=== PATIENT | female | born 1970 | race Caucasian/White ===

== ENCOUNTER 2017-05-14 10:28 | Inpatient (IN) | payer MEDICAID ==
[~2017-05-14] VITALS: Ht 157.5 cm; Wt 70.9 kg
[2017-05-14 10:34] VITALS: Ht 157.5 cm; Wt 70.9 kg
[2017-05-14 12:04] LABS: BASOPHIL % 0.5 % (0-2); PLATELET COUNT 309 x10^3mcL (130-400); RED CELL DISTRIBUTION WIDTH 13.1 % (11.5-14.5)
[2017-05-14 12:31] LABS: CALCIUM 8.8 mg/dL (8.5-10.1); CHLORIDE SERUM 104 mmol/L (98-107); GFR1 > 60 mL/min; GLUCOSE SERUM 88 mg/dL (74-106); POTASSIUM SERUM 3.5 mmol/L (3.5-5.1); SODIUM SERUM 138 mmol/L (136-145)
[2017-05-14 12:36] LABS: ALKALINE PHOSPHATASE 97 U/L (46-116); ALT/SGPT 17 U/L (14-59); AST/SGOT 20 U/L (15-37); BILIRUBIN TOTAL 0.39 mg/dL (0.20-1.00); TOTAL PROTEIN, SERUM 7.7 g/dL (6.4-8.2)
[2017-05-14] MEDS ORDERED: CLINDAMYCIN HC300 MG PO (13:03)
[2017-05-14] MEDS ORDERED: BACTRIM1 TAB PO (13:03)
[2017-05-14] MEDS ORDERED: NORCO1 TA2 PO ×2 (13:04→13:05)
[2017-05-14 13:31] VITALS: BP 99/67
[2017-05-14 14:15] LABS: MAGNESIUM 1.4 mg/dL (1.8-2.4); PHOSPHOROUS 2.1 mg/dL (2.5-4.9)
[2017-05-14 14:17] LABS: CHOLESTEROL/HDL RATIO 2.5; T3 TOTAL 0.83 ng/mL
[2017-05-14 14:23] LABS: FREE T4 1.14 ng/dL (0.76-1.46); FREE THYROXINE INDEX 2.4 ug/dL (1.4-4.5); T4(THYROXINE) 7.5 ug/dL (4.7-13.3)
[2017-05-14 18:11] LABS: UA SPECIFIC GRAVITY 1.025 (1.005-1.035); microscopic required? YES; urine erythrocyte TRACE (NEGATIVE)
[2017-05-14 18:22] LABS: AMPHETAMINE QUAL UR POSITIVE (NEG <=1000)
[2017-05-14 19:27] VITALS: BP 100/51
[2017-05-14 22:56] VITALS: BP 97/51
[2017-05-15 05:37] VITALS: BP 97/48; BP 97/50
[2017-05-15 06:37] LABS: BASOPHIL % 0.4 % (0-2); PLATELET COUNT 266 x10^3mcL (130-400); RED CELL DISTRIBUTION WIDTH 13.2 % (11.5-14.5)
[2017-05-15 07:08] LABS: CALCIUM 8.5 mg/dL (8.5-10.1); CARBON DIOXIDE 24.7 mmol/L (21-32); CHLORIDE SERUM 104 mmol/L (98-107); CREATININE SERUM 0.9 mg/dL (0.6-1.0); GFR1 > 60 mL/min; GLUCOSE SERUM 98 mg/dL (74-106); SODIUM SERUM 138 mmol/L (136-145)
[2017-05-15 09:15] LABS: MAGNESIUM 2.1 mg/dL (1.8-2.4)
[2017-05-15 10:26] VITALS: BP 96/51
[2017-05-15 12:58] VITALS: BP 92/45
[2017-05-15 17:29] VITALS: BP 94/51
[2017-05-15 21:02] VITALS: BP 95/51
[2017-05-16 06:01] VITALS: BP 96/51
[2017-05-16 08:41] VITALS: BP 88/55
[2017-05-16] MEDS ORDERED: CLINDAMYCIN HC300 MG PO (13:34)
[2017-05-16] MEDS ORDERED: NORCO1 TA2 PO (13:36)
[2017-05-16] MEDS ORDERED: BD LACTINEX1.4 MG PO (13:36)
== END 2017-05-16 13:36 | disposition home or self-care (01) | DRG 383 ==
LOC: ED 10:28 → DU 12:08
PROVIDERS: Emergency Medicine; Family Medicine
PROC: 0H9KXZZ Drainage of Right Lower Leg Skin, External Approach (ICD-10-PCS; principal; 2017-05-14)
DX: L03.115 Cellulitis of right lower limb (principal); E44.0 Moderate protein-calorie malnutrition; E83.42 Hypomagnesemia; E83.39 Other disorders of phosphorus metabolism; S81.011S Laceration without foreign body, right knee, sequela; R73.03 Prediabetes; F17.210 Nicotine dependence, cigarettes, uncomplicated; F15.10 Other stimulant abuse, uncomplicated; Z91.19 Patient's noncompliance with other medical treatment and regimen; Z68.29 Body mass index [BMI] 29.0-29.9, adult; W10.1XXS Fall (on)(from) sidewalk curb, sequela
CPT/HCPCS: 83880; 84439; 90658; G0480; J1170; J1644; J1956; J2001; J3370; J3475; J3490; J7030; Q0092

== ENCOUNTER 2017-07-18 12:32 | Emergency (ER) | payer MEDICAID ==
[~2017-07-18] VITALS: Ht 157.5 cm; Wt 70.8 kg
[~2017-07-18 12:32] MED LIST: BACTRIM1 TAB PO; BD LACTINEX1.4 MG PO; CLINDAMYCIN HC300 MG PO; NORCO1 TA2 PO
[2017-07-18 12:53] VITALS: BP 141/95; Ht 157.5 cm; Wt 70.8 kg
== END 2017-07-18 13:25 | disposition home or self-care (01) ==
LOC: ED 12:32
DX: L29.9 Pruritus, unspecified (principal); F17.210 Nicotine dependence, cigarettes, uncomplicated; Z71.6 Tobacco abuse counseling
CPT/HCPCS: 99406

== ENCOUNTER 2018-08-06 12:19 | Emergency (ER) | payer MEDICAID ==
[~2018-08-06] VITALS: Ht 154.9 cm; Wt 72.6 kg
[2018-08-06 13:05] VITALS: BP 136/82; Ht 154.9 cm; Wt 72.6 kg
== END 2018-08-06 13:45 | disposition home or self-care (01) ==
LOC: ED 12:19
DX: J03.90 Acute tonsillitis, unspecified (principal)

== ENCOUNTER 2018-08-08 12:12 | Emergency (ER) | payer MEDICAID ==
[~2018-08-08] VITALS: Ht 157.5 cm; Wt 70.9 kg
[2018-08-08 12:28] VITALS: BP 148/94; Ht 157.5 cm; Wt 70.9 kg
== END 2018-08-08 13:21 | disposition home or self-care (01) ==
LOC: ED 12:12
DX: J03.90 Acute tonsillitis, unspecified (principal); R07.89 Other chest pain

== ENCOUNTER 2019-02-16 17:41 | Emergency (ER) | payer MEDICAID ==
[~2019-02-16] VITALS: Ht 157.5 cm; Wt 70.5 kg
[2019-02-16 18:01] VITALS: Ht 157.5 cm; Wt 70.5 kg
[2019-02-16 19:34] VITALS: BP 128/74
== END 2019-02-16 19:34 | disposition home or self-care (01) ==
LOC: ED 17:41
DX: N10 Acute pyelonephritis (principal); F17.200 Nicotine dependence, unspecified, uncomplicated
CPT/HCPCS: 99406; J0696

== ENCOUNTER 2019-02-26 11:49 | Emergency (ER) | payer MEDICAID ==
[~2019-02-26] VITALS: Ht 157.5 cm; Wt 71.7 kg
[2019-02-26 13:22] LABS: UA SPECIFIC GRAVITY >=1.030 (1.005-1.035); microscopic required? YES; urine erythrocyte 2+ (NEGATIVE)
[2019-02-26 13:42] VITALS: BP 117/61
== END 2019-02-26 13:42 | disposition home or self-care (01) ==
LOC: ED 11:49
PROVIDERS: Emergency Medicine
DX: R10.30 Lower abdominal pain, unspecified (principal); M54.5 Low back pain; R19.7 Diarrhea, unspecified; R11.10 Vomiting, unspecified
CPT/HCPCS: 87491; 87591; J1885

== ENCOUNTER 2019-03-22 16:40 | Emergency (ER) | payer MEDICAID ==
[~2019-03-22] VITALS: Ht 157.5 cm; Wt 70.9 kg
[2019-03-22 17:30] VITALS: Ht 157.5 cm; Wt 70.9 kg
[2019-03-22 20:16] LABS: BASOPHIL % 0.3 % (0-2); PLATELET COUNT 260 x10^3mcL (130-400); RED CELL DISTRIBUTION WIDTH 12.6 % (11.5-14.5)
[2019-03-22 20:29] LABS: CARBON DIOXIDE 30.3 mmol/L (21-32); CHLORIDE SERUM 105 mmol/L (98-107); CREATININE SERUM 0.8 mg/dL (0.6-1.0); GFR1 > 60 mL/min; GLUCOSE SERUM 90 mg/dL (74-106); POTASSIUM SERUM 4.2 mmol/L (3.5-5.1); SODIUM SERUM 139 mmol/L (136-145)
[2019-03-22 20:34] LABS: ALBUMIN 3.1 g/dL (3.4-5.0); ALKALINE PHOSPHATASE 83 U/L (46-116); ALT/SGPT 19 U/L (14-59); AST/SGOT 13 U/L (15-37); BILIRUBIN TOTAL 0.13 mg/dL (0.20-1.00); TOTAL PROTEIN, SERUM 6.5 g/dL (6.4-8.2)
[2019-03-22 21:41] VITALS: BP 137/75
== END 2019-03-22 21:41 | disposition home or self-care (01) ==
LOC: ED 16:40
PROVIDERS: Emergency Medicine
DX: A59.01 Trichomonal vulvovaginitis (principal); R51 Headache
CPT/HCPCS: 36415; 87491; 87591

== ENCOUNTER 2019-06-01 15:17 | Emergency (ER) | payer MEDICAID ==
[~2019-06-01] VITALS: Ht 157.5 cm; Wt 72.6 kg
[2019-06-01 15:30] VITALS: Ht 157.5 cm; Wt 72.6 kg
[2019-06-01 16:05] VITALS: BP 132/81
== END 2019-06-01 16:05 | disposition home or self-care (01) ==
LOC: ED 15:17
DX: J32.9 Chronic sinusitis, unspecified (principal)

== ENCOUNTER 2019-10-11 08:22 | Emergency (ER) | payer MEDICAID ==
[~2019-10-11] VITALS: Ht 157.5 cm; Wt 72.1 kg
[2019-10-11 08:31] VITALS: Ht 157.5 cm; Wt 72.1 kg
[2019-10-11 08:55] LABS: UA SPECIFIC GRAVITY >=1.030 (1.005-1.035); microscopic required? YES; urine erythrocyte 2+ (NEGATIVE)
[2019-10-11 09:21] VITALS: BP 131/81
== END 2019-10-11 10:22 | disposition home or self-care (01) ==
LOC: ED 08:22
PROVIDERS: Emergency Medicine
DX: R30.0 Dysuria (principal); R35.0 Frequency of micturition; R39.198 Other difficulties with micturition; R11.2 Nausea with vomiting, unspecified; R19.7 Diarrhea, unspecified; K21.9 Gastro-esophageal reflux disease without esophagitis; F17.210 Nicotine dependence, cigarettes, uncomplicated
CPT/HCPCS: 82962; 99406

== ENCOUNTER 2019-11-03 13:45 | Emergency (ER) | payer MEDICAID ==
[~2019-11-03] VITALS: Ht 165.1 cm; Wt 70.8 kg
[2019-11-03 14:04] VITALS: Ht 165.1 cm; Wt 70.8 kg
[2019-11-03 16:30] VITALS: BP 111/59
== END 2019-11-03 16:30 | disposition home or self-care (01) ==
LOC: ED 13:45
DX: F41.9 Anxiety disorder, unspecified (principal); R07.89 Other chest pain; F17.210 Nicotine dependence, cigarettes, uncomplicated; K21.9 Gastro-esophageal reflux disease without esophagitis
CPT/HCPCS: 99406; Q0092